=== PATIENT | male | born 1960 | race Caucasian/White ===

== ENCOUNTER 2018-02-11 21:49 | Emergency (ER) | payer OTHER ==
[2018-02-12] MEDS: HYDROCODONE/APAP (5/325) TAB PO (00:51)
== END 2018-02-12 01:12 | disposition home or self-care (01) ==
LOC: FTE 21:49
DX: M25.571 Pain in right ankle and joints of right foot (principal); I10 Essential (primary) hypertension; Z87.891 Personal history of nicotine dependence; Z48.01 Encounter for change or removal of surgical wound dressing
CPT/HCPCS: 99283; Z7502